=== PATIENT | female | born 1940 | race Caucasian/White ===

== ENCOUNTER → 2017-06-16 | Outpatient (CLI) | payer OTHER ==
[~2017-06-16] MED LIST: ALPRAZOLAM0.25 M2 PO; LISINOPRIL20 MG PO; MECLIZINE HCL25 MG PO; SERTRALINE HCL100 MG PO; VALIUM5 MG PO; ZOLPIDEM TARTRA10 MG PO
== END | disposition home or self-care (01) ==
LOC: NUC 08:42
DX: R07.9 Chest pain, unspecified (principal)
CPT/HCPCS: 78452; 93017; A9500; J2785